=== PATIENT | male | born 1950 | race Caucasian/White ===

== ENCOUNTER 2017-09-07 05:45 | Day surgery (SDC) | payer OTHER ==
[~2017-09-07 05:45] MED LIST: COZAAR25 MG; GLUCOPHAGE XR500 MG
[2017-09-07] MEDS ORDERED: PERCOCET 5-3251 EACH PO (09:39)
== END 2017-09-07 14:50 | disposition home or self-care (01) ==
LOC: CIR.AMB 05:45
DX: K60.3 Anal fistula (principal); K62.89 Other specified diseases of anus and rectum; K61.0 Anal abscess